=== PATIENT | male | born 1990 ===

== ENCOUNTER 2024-10-31 09:45 | Emergency (ER) | payer MEDICAID, SELFPAY ==
--- NOTE | ~2024-10-31 | XR_ITS ---
EXAMINATION: XR CHEST CLINICAL INFORMATION: Dizziness COMPARISON: None available. TECHNIQUE: Frontal view of the chest was obtained. FINDINGS: The cardiac, hilar, and mediastinal contours are normal. The lungs are clear bilaterally. No pneumothorax or effusion. No focal osseous or soft tissue abnormality. XR/XR chest 1V IMPRESSION: No active pulmonary disease. Electronically signed by: Neftaly Morin MD 10/31/2024 12:51 PM EDT
--- NOTE | ~2024-10-31 | CT_ITS ---
EXAMINATION: CT HEAD WITHOUT IV CONTRAST HISTORY: dizziness, viera. TECHNIQUE: Unenhanced helical CT of the head was performed per standard departmental protocol. Coronal and sagittal reformats of the head were also evaluated. One or more of the following techniques was used for dose reduction: Automated exposure control, adjustment of the mA and/or kV according to patient size, use of iterative reconstruction technique. DLP: 752 mGy-cm COMPARISON: There are no prior studies for comparison. FINDINGS: BRAIN: The brain parenchyma is unremarkable. There is normal toussaint/white differentiation. The ventricular system is normal in size and configuration. There is no mass effect or midline shift. No intra- or extra-axial fluid collections are identified. SINUSES: There is pansinus mucosal thickening. The mastoid air cells and middle ear cavities are well pneumatized. ORBITS: The visualized orbits are unremarkable. BONES/SOFT TISSUES: The extracranial soft tissues are unremarkable. The calvarium is intact. No suspicious lytic or sclerotic lesions. CT/CT head/brain wo IV con IMPRESSION: Unremarkable unenhanced head CT. Electronically signed by: Rafi Souza MD 10/31/2024 01:53 PM EDT
[2024-10-31 09:57] VITALS: BP 133/73; PULSE 79; RESP 18; TEMP 36.1; O2SAT 98; BMI 26.9
[2024-10-31 10:44] LABS: MANUAL DIFF FLAG NO
[2024-10-31 10:53] LABS: Basophils Percent Auto 0.4 % (0-2); Eosinophils Absolute Auto 0.1 X10*3/uL (0.0-0.4); Eosinophils Percent Auto 0.8 % (0-4); Hematocrit 50.2 % (42.0-52.0); Hemoglobin 16.8 g/dl (14.0-18.0); Imm Gran Abs Auto 0.04 X10*3/uL (0.00-0.03); Imm Gran Pct Auto 0.4 % (0.0-0.4); Lymphocytes Absolute Auto 2.6 X10*3/uL (1.2-4.9); Lymphocytes Percent Auto 25.7 % (20-40); Mean Corpuscular HGB Conc 33.5 g/dl (31.0-36.0); Mean Corpuscular Hemoglobin 28.4 pg (27.0-33.0); Mean Corpuscular Volume 84.9 fL (80.0-98.0); Mean Platelet Volume 9.9 fL (9.4-12.4); Monocytes Absolute Auto 0.6 X10*3/uL (0.1-1.2); Monocytes Percent Auto 6.1 % (2-11); Neutrophils Absolute Auto 6.7 x10*3/uL (2.0-8.3); Neutrophils Percent Auto 66.6 % (45-73); Platelet Count 284 X10*3/uL (160-400); Red Blood Count 5.91 X10*6/uL (4.60-5.80); Red Cell Distribution Width 12.2 % (11.0-16.0); White Blood Count 10.1 X10*3/uL (4.8-10.8)
[2024-10-31 10:55] LABS: Appearance Urine Clear; Color Urine Yellow; Glucose Urine UA Negative (Negative); Leukocyte Esterase Urine Negative (Negative); Nitrite Urine Negative (Negative); PH 7.5 (5.0-9.0); Specific Gravity - Urine 1.025 (1.005-1.025); UMIC TRIGGER UACC YES; Urine Blood Negative (Negative); Urine Ketones Trace mg/dL (Negative); Urine Protein 30 (1+) mg/dL (Neg-Trace)
[2024-10-31 11:00] LABS: Bacteria Urine None Seen (None Seen); Hyaline Casts Urine 0-2 /LPF (0-2); RBC Urine 0-2 /HPF (0-2); Squamous Epithelial Cell Urine 0-2 /HPF (0-2); WBC Urine 0-5 /HPF (0-5)
[2024-10-31 11:11] LABS: Alanine Aminotransferase 47 U/L (0-40); Albumin Level 4.2 g/dL (3.5-5.0); Alkaline Phosphatase 87 U/L (39-117); Anion Gap 14 (12-20); Aspartate Amino Transferase 28 U/L (5-37); Bilirubin Direct 0.2 mg/dL (0.0-0.5); Bilirubin Total 0.8 mg/dL (0.0-1.0); Blood Urea Nitrogen 12 mg/dL (9-16); Calcium 9.5 mg/dL (8.4-10.2); Carbon Dioxide 24 mmol/L (22-29); Chloride 107 mmol/L (96-108); Creatinine Clr Calc Pharmacy 127.3; Estimated Glomerular Filt Rate > 60; Glucose Random 122 mg/dL (60-115); Magnesium 1.8 mg/dL (1.6-2.6); Potassium 3.8 mmol/L (3.3-5.1); Sodium 141 mmol/L (135-145); Total Protein 7.4 g/dL (6.5-8.0)
[2024-10-31 12:08] VITALS: BP 137/90; PULSE 68; RESP 18; O2SAT 100
--- NOTE | 2024-10-31 12:19 | ED_ITS ---
HPI - General Adult General Chief complaint: Abdominal Pain Stated complaint: nausea weak fainted last night Time Seen by Provider: 10/31/24 11:53 Source: patient, RN notes reviewed and old records reviewed Mode of arrival: ambulatory History of Present Illness ED Provider: Di Sánchez PA-C HPI narrative: 34-year-old male with no significant past medical history presenting to the ED complaining of lightheadedness/dizziness described as feeling off balance - worse with position changes, resolves at rest, abdominal discomfort, nausea, diarrhea, mild headache x last night. Reports generalized fatigue/weakness. Reports fall last night around 03:00 secondary to feeling dizzy, denies head strike or LOC. Denies syncope. Denies anticoagulation use, vision change or loss, focal weakness, CP/SOB, vomiting, dysuria/hematuria. Related Data Previous Rx's ?Medication ?Instructions ?Recorded meclizine 25 mg tablet 25 mg PO TID PRN dizziness #14 tabs 10/31/24 Allergies Allergy/AdvReac Type Severity Reaction Status Date / Time No Known Allergies Allergy Verified 10/31/24 09:59 Review of Systems 2 Review of Systems: Yes all other systems are reviewed and are negative Constitutional: Constitutional: Reports as per HPI Neurologic: Denies Abnormal speech present [facility] Past Medical History Attestation statement: The following information was validated with the patient. Source: old records reviewed Social History Social History Advance Directives: No Advance Directives Information Provided: Yes Physical Exam ED Vital Signs: Vital Signs - 24 hr 10/31/24 09:57 10/31/24 12:08 10/31/24 13:45 Temperature 96.9 F Pulse Rate 79 68 70 Respiratory Rate 18 18 Blood Pressure 133/73 137/90 H 119/75 Pulse Oximetry 98 100 Oxygen Delivery Method Room Air Room Air 10/31/24 13:45 10/31/24 13:46 10/31/24 13:46 Temperature Pulse Rate 78 70 87 Respiratory Rate 16 Blood Pressure 137/85 119/75 124/91 H Pulse Oximetry 97 Oxygen Delivery Method Room Air BMI result Body Mass Index 26.9 Const General: cooperative, healthy appearing and no acute distress Orientation/consciousness: patient oriented x3 Limitations: no limitations HENMT Head: Yes normal to inspection and Yes atraumatic Ears: hearing grossly normal bilaterally General nose exam: Normal external nose present Face and sinus: Yes normal facial exam Mouth: Normal oral and palatal mucosa present Throat: Yes posterior oropharynx normal Eyes General: appearance normal, both eyes and all related structures Pupils: Equal, round and reactive pupils present EOM: EOMs intact bilaterally Neck Neck: Yes normal visual inspection and Yes no meningeal signs Resp Effort & Inspection: normal respiratory effort and no respiratory distress Auscultation: clear to auscultation bilaterally, no crackles, no rales, no rhonchi and no wheezes Cardio Rate: regular rate Heart sounds: S1 normal heart sound present and S2 normal heart sound present GI Inspection: Yes normal to inspection Palpation (GI): Soft to palpation, nontender, no guarding and not rigid General: Yes no CVA tenderness Back/Spine/Pelvis Back: no CVA tenderness Skin Rashes: no rashes Wounds: no wounds Neuro General: patient oriented x3, gait normal, tone normal, moves all extremities, no meningeal signs, no focal motor deficits and CN's II-XI intact bilaterally Cranial nerves: Yes CN's II-XII intact bilaterally, Yes Equal, round and reactive pupils present and Yes Bilaterally intact EOM present Cognition (Neuro): normal cognition Speech: No Abnormal speech present Gait exam (Neuro): Normal gait present (No ataxia) Motor exam (neuro): 5/5 motor strength present throughout Romberg Test: Negative Extrem General: Yes normal to inspection and Yes no pedal edema Course Course Course Narrative: -1422--labs reassuring including negative troponin -UA negative. Viral testing negative CT head/brain wo IV con IMPRESSION: Unremarkable unenhanced head CT. XR chest 1V IMPRESSION: No active pulmonary disease. -orthostatic vital signs negative > 1432 on re-evaluation patient reports symptomatic improvement. Feels comfortable for discharge home at this time. Results discussed with patient including worrisome signs and symptoms and strict return precautions, and when to return to the emergency department. They verbalized understanding and feel safe for discharge at this time. Medications Administered Discontinued Medications Generic Name Dose Route Start Last Admin Trade Name Freq PRN Reason Stop Dose Admin Acetaminophen 650 mg 10/31/24 12:14 10/31/24 12:28 Acetaminophen 325 Mg Tablet PO 10/31/24 12:15 650 mg ONCE ONE Administration Sodium Chloride 1,000 mls @ 999 mls/hr 10/31/24 12:15 10/31/24 13:58 Ns IV 10/31/24 13:15 Infused .Q1H1M LOI Infusion Meclizine HCl 25 mg 10/31/24 12:14 10/31/24 12:29 Meclizine Hcl 25 Mg Tablet PO 10/31/24 12:15 25 mg ONCE ONE Administration Medical Decision Making Medical Decision Making [facility] Narrative: 34-year-old male with no significant past medical history presenting to the ED complaining of lightheadedness/dizziness described as feeling off balance - worse with position changes, resolves at rest, abdominal discomfort, nausea, diarrhea, mild headache x last night. Reports generalized fatigue/weakness. On exam vital signs stable, NAD, nontoxic appearing, no focal neuro deficits, ambulating with steady gait, no ataxia, abdomen is soft and nontender. Concern for BPPV vs dehydration vs viral illness. Rule out metabolic abnormalities. Lower suspicion for acute CVA/TIA, meningitis/encephalitis, CVT, ACS, or intra- abdominal pathology including appendicitis/diverticulitis Plan: EKG, labs, UA, CXR, head CT, orthostatics, IVF, meclizine, re-evaluate Please refer to course for remaining clinical decision making, interpretation of labs/imaging results, and discussions with consultants and/or family members. Differential Diagnosis Differential Diagnoses: The differential diagnosis associated with the presentation includes As above Admission/Observation Consideration of admission/observation: Escalation of care including admission/observation considered Lab Data [facility] Lab Attestation statement: I reviewed the patient's lab results. 10/31/24 10:15 10/31/24 10:15 Labs: Lab Results 10/31/24 10/31/24 10/31/24 Range/Units 10:15 10:47 12:19 WBC 10.1 (4.8-10.8) X10*3/uL RBC 5.91 H (4.60-5.80) X10*6/uL Hgb 16.8 (14.0-18.0) g/dl Hct 50.2 (42.0-52.0) % MCV 84.9 (80.0-98.0) fL MCH 28.4 (27.0-33.0) pg MCHC 33.5 (31.0-36.0) g/dl RDW 12.2 (11.0-16.0) % Plt Count 284 (160-400) X10*3/uL MPV 9.9 (9.4-12.4) fL Immature Gran % (Auto) 0.4 (0.0-0.4) % Neut % (Auto) 66.6 (45-73) % Lymph % (Auto) 25.7 (20-40) % Hyde % (Auto) 6.1 (2-11) % Eos % (Auto) 0.8 (0-4) % Baso % (Auto) 0.4 (0-2) % Lymph # (Auto) 2.6 (1.2-4.9) X10*3/uL Hyde # (Auto) 0.6 (0.1-1.2) X10*3/uL Eos # (Auto) 0.1 (0.0-0.4) X10*3/uL Baso # (Auto) 0.0 (0.0-0.2) X10*3/uL Abs Immat Gran (auto) 0.04 H (0.00-0.03) X10*3/uL Absolute Neuts (auto) 6.7 (2.0-8.3) x10*3/uL Absolute Nucleated RBC 0.000 (0.0-0.012) X10*3/uL Nucleated RBC % (auto) 0.0 (0.0-0.2) /100WBC Sodium 141 (135-145) mmol/L Potassium 3.8 (3.3-5.1) mmol/L Chloride 107 (96-108) mmol/L Carbon Dioxide 24 (22-29) mmol/L Anion Gap 14 (12-20) BUN 12 (9-16) mg/dL Creatinine 0.86 (0.5-1.4) mg/dL Estim Creat Clear Calc 127.3 Estimated GFR > 60 Random Glucose 122 H (60-115) mg/dL Calcium 9.5 (8.4-10.2) mg/dL Magnesium 1.8 (1.6-2.6) mg/dL Total Bilirubin 0.8 (0.0-1.0) mg/dL Direct Bilirubin 0.2 (0.0-0.5) mg/dL AST 28 (5-37) U/L ALT 47 H (0-40) U/L Alkaline Phosphatase 87 (39-117) U/L Troponin I High Sens < 2.7 (<3.5-35.0) ng/L Total Protein 7.4 (6.5-8.0) g/dL Albumin 4.2 (3.5-5.0) g/dL Lipase 27 (8-78) U/L Urine Color Yellow Urine Appearance Clear Urine pH 7.5 (5.0-9.0) Ur Specific Al[place] 1.025 (1.005-1.025) Urine Protein 30 (1+) H (Neg-Trace) mg/dL Urine Glucose (UA) Negative (Negative) mg/dL Urine Ketones Trace (Negative) mg/dL Urine Blood Negative (Negative) Urine Nitrite Negative (Negative) Ur Leukocyte Esterase Negative (Negative) Urine RBC 0-2 (0-2) /HPF Urine WBC 0-5 (0-5) /HPF Ur Squamous Epith Cells 0-2 (0-2) /HPF Urine Bacteria None Seen (None Seen) Hyaline Casts 0-2 (0-2) /LPF Influenza Type A (PCR) NEGATIVE (Negative) Influenza Type B (PCR) NEGATIVE (Negative) RSV RNA Qual (PCR) NEGATIVE (Negative) SARS-CoV-2 RNA (RT-PCR) NEGATIVE (Negative) Independent Interpretation I performed an independent interpretation of an: EKG, Plain X-Ray and CT Scan Radiology Impression Discussion of test interpretation with radiology: I have reviewed the radiologist's reading. Independent Historian Clinical information obtained from an independent historian. History obtained from or confirmed by: Other External Record Review External record reviewed: Inpatient record, Office record, Outpatient record, Prior outpatient labs, Prior outpatient radiology, Primary care record and Outside ED record Tests considered The following testing was considered but not selected: As above Prescription Management I considered prescription management with: Pain Medication and Other Chronic Conditions Patient?s care impacted by: Other Social Determinants Patient?s care significantly limited by Social Determinants of Health including: Other Social Determinant of Health Discharge Plan Discharge Clinical Impression: Dizziness, Abdominal pain Patient Disposition: Home, Self-Care Instructions: Abdominal Pain (ED), Dizziness (ED) Additional Instructions: Your blood work and imaging studies are reassuring Meclizine is for dizziness, take as needed If her symptoms persist or worsen, become more constant, dizziness is at rest, you have constant or worsening headache, abdominal pain, nausea/vomiting return to the ED Prescriptions: New meclizine 25 mg tablet 25 mg PO TID PRN (Reason: dizziness) Qty: 14 0RF Referrals: [facility] [Primary Care Provider] - 5 days Print Language: Vietnamese
[2024-10-31] MEDS: Acetaminophen 325 MG TABLET 650 MG PO (12:28)
[2024-10-31] MEDS: Meclizine HCl 25 MG TABLET PO (12:29)
[2024-10-31] MEDS: 0.9 % Sodium Chloride 1,000 ML 999 ML IV (12:29)
[2024-10-31 12:46] LABS: Lipase 27 U/L (8-78)
[2024-10-31 12:55] LABS: Troponin-I High Sensitivity < 2.7 ng/L (<3.5-35.0)
--- OUTSIDE RECORDS SUMMARY | 2024-10-31 12:59 | XMS_ITS | Encounter Summary ---
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 Name Role Phone Unavailable Primary Care Provider Unavailabl e Encounter Details Date Type Department Care Team (Late st Contact Info) Description 10/31/2024 Orders Only GENERIC EXTERNAL DATA DEPARTMENT Provider, Generic External Data Social History Tobacco Use Types Packs/Day Years Used Date Smoking Tobacco: Never Passive Smoke Exposure: Never Smokeless Tobacco: Never Sex and Gender Information Value Date Recorded Sex Assigned at Male 08/15/2024 1:34 PM EST Legal Sex Male 1:31 PM EST Gender Identity Male 08/15/2024 1:34 PM EST Sexual Orientation Straight 08/15/2024 1: 34 PM EST documented as of this encounter Plan of Treatment Upcoming Encounters Date Type Department Care Team (Late st Contact Info) Description 11/15/2024 10:00 AM EDT Office Visit [facility] [address] [place] [address] Leanne Starr MD [address] [place] [address] documented as of this encounter Procedures Procedure Name Priority Date/Time Associated Diagnosis Comments URINALYSIS, COMPLETE, WITH REFLEX TO CULTURE Routine 10/31/2024 10:47 AM EDT CBC WITH AUTO DIFFERENTIAL Routine 10/31/2024 10:15 AM EDT MAGNESIUM Routine 10/31/2024 10:15 AM EDT HEPATIC FUNCTION PANEL Routine 10:15 AM EDT COMPREHENSIVE METABOLIC PANEL Routine 10/31/2024 10:15 AM EDT documented in this encounter Results * (ABNORMAL) Urinalysis, Complete, with Reflex to Culture (10/31/2024 10:47 AM EDT) Color Urine Yellow [facility] Appearance Urine Clear [facility] PH 7.5 5.0 - 9.0 [facility] Glucose Urine UA Negative Negative mg/dL [facility] Urine Blood Negative Negative [facility] Specific [place] - Urine 1.025 1.005 - 1.025 [facility] Urine Protein 30 (1+)(A) Neg-Trace mg/dL [facility] Urine Ketones Trace Negative mg/dL [facility] Nitrite Urine Negative Negative [facility] Leukocyte Esterase Urine Negative Negative [facility] RBC Urine 0-2 0 - 2 /HPF [facility] Urine WBC 0-5 0 - 5 /HPF [facility] Urine Squamous Epithelial Cell 0-2 0 - 2 /HPF [facility] Urine Bacteria None Seen None Seen [facility] Hyaline Casts, Urine 0-2 0 - 2 /LPF [facility] 10/31/2024 10:4 7 AM EDT 10/31/2024 10:50 AM EDT Narrative [facility] - 10/31/2024 11:02 AM EDT [id number], Clean Catch us Generic External Data Provider LAB URINE ORDERAB LES Final Result [facility] [address] [place] [phone] * Magnesium (10/31/2024 10:15 AM EDT) Magnesium 1.8 1.6 - 2.6 mg/dL [facility] 10/31/2024 10:1 5 AM EDT 10/31/2024 10:41 AM EDT Generic External Data Provider LAB BLOOD ORDERAB LES Final Result Performing Organization Address City/[facility]/ZIP Co de Phone Number [facility] [address] [place] [address] [phone] * Hepatic Function Panel (10/31/2024 10:15 AM EDT) Pathologist [facility] Bilirubin, Direct 0.2 0.0 - 0.5 mg/dL [facility] 10/31/2024 10:1 5 AM EDT 10/31/2024 10:41 AM EDT Generic External Data Provider LAB BLOOD ORDERAB LES Final Result Performing Organization Address [facility] Co de Phone Number [facility] [address] [place] [address] [phone] * (ABNORMAL) Comprehensive Metabolic Panel (10/31/2024 10:15 AM EDT) [facility] Sodium 141 135 - 145 mmol/L [facility] Potassium 3.8 3.3 - 5.1 mmol/L [facility] Chloride 107 96 - 108 mmol/L [facility] Carbon Dioxide 24 22 - 29 mmol/L [facility] Anion Gap 14 12 - 20 [facility] Urea Nitrogen (BUN) 12 9 - 16 mg/dL [facility] Creatinine, Serum 0.86 0.5 - 1.4 mg/dL [facility] Creatinine Clr Calc Pharmacy 127.3 [facility] Comment:eGFR (calculated fro m the MDRD study equation) and eCrCl(calculated from the Cockcroft-Gault equation) are based ondifferent parameters and may not yield comparable results.If eCrCl result is absurd, please check patient'sheight/weight. Estimated Glomerular Filt Rate >60 [facility] Comment:Chronic Kidney Disea se: Estimated GFR < 60 mL/min/[id number] Kidney Disease: Estimated GFR < 15 mL/min/1.73m2 Glucose 122(H) 60 - 115 mg/dL [facility] Calcium 9.5 8.4 - 10.2 mg/dL [facility] Bilirubin, Total 0.8 0.0 - 1.0 mg/dL [facility] Aspartate Amino Transferase 28 5 - 37 U/L [facility] Alanine Aminotransferase 47(H) 0 - 40 U/L [facility] Total Protein 7.4 6.5 - 8.0 g/dL [facility] Albumin Level 4.2 3.5 - 5.0 g/dL [facility] Alkaline Phosphatase 87 39 - 117 U/L [facility] 10/31/2024 10:1 5 AM EDT 10/31/2024 10:41 AM EDT us Generic External Data Provider LAB BLOOD ORDERAB LES Final Result [facility] [address] [place] [phone] * (ABNORMAL) CBC auto differential (10/31/2024 10:15 AM EDT) White Blood Count 10.1 4.8 - 10.8 X10*3/uL [facility] Red Blood Count 5.91(H) 4.60 - 5.80 X10*6/uL [facility] Hemoglobin 16.8 14.0 - 18.0 g/dl [facility] Hematocrit 50.2 42.0 - 52.0 % [facility] Mean Corpuscular Volume 84.9 80.0 - 98.0 fL [facility] Mean Corpuscular Hemoglobin 28.4 27.0 - 33.0 pg [facility] Mean Corpuscular HGB Conc 33.5 31.0 - 36.0 g/dl [facility] Red Cell Distribution Width 12.2 11.0 - 16.0 % [facility] Platelet Count 284 160 - 400 X10*3/uL [facility] Mean Platelet Volume 9.9 9.4 - 12.4 fL [facility] Neutrophils Percent Auto 66.6 45 - 73 % [facility] Imm Gran Pct Auto 0.4 0.0 - 0.4 % [facility] Lymphocytes Percent Auto 25.7 20 - 40 % [facility] Monocytes Percent Auto 6.1 2 - 11 % [facility] Eosinophils Percent Auto 0.8 0 - 4 % [facility] Basophils Percent Auto 0.4 0 - 2 % [facility] NRBC Pct Auto 0.0 0.0 - 0.2 /100WBC [facility] Neutrophils Absolute Auto 6.7 2.0 - 8.3 x10*3/uL [facility] Imm Gran Abs Auto 0.04(H) 0.00 - 0.03 X10*3/uL [facility] Lymphocytes Absolute Auto 2.6 1.2 - 4.9 X10*3/uL [facility] Monocytes Absolute Auto 0.6 0.1 - 1.2 X10*3/uL [facility] Eosinophils Absolute Auto 0.1 0.0 - 0.4 X10*3/uL [facility] Basophils Absolute Auto 0.0 0.0 - 0.2 X10*3/uL [facility] NRBC Abs Auto 0.000 0.0 - 0.012 X10*3/uL [facility] 10/31/2024 10:1 5 AM EDT 10/31/2024 10:41 AM EDT us Generic External Data Provider LAB BLOOD ORDERAB LES Final Result [facility] [address] [place] [phone] documented in this encounter Visit Diagnoses Not on filedocumented in this encounter
--- OUTSIDE RECORDS SUMMARY | 2024-10-31 12:59 | XMS_ITS | Clinical Summary ---
Author Organization [facility] Address [address] [place] [id number] Care Team Providers Care Rotational Moulding Operator Name Role Phone Pcp, No Primary Care Provider Unavailabl e Allergies No known active allergies Medications ProAir HFA 108 (90 Base) MCG/ACT inhaler INHALE 2 PUFFS BY MOUTH EVERY 6 HOURS NEEDED FOR DIFFICULTY BREATHING 1 Active fluticasone-salmet ines (ADVAIR HFA) 230-21 MCG/ACT inhalerIndications :Moderate persistent asthma, unspecified whether complicated Inhale 2 puffs 2 (two) times a day. 1 each 5 2 Active albuterol (PROVENTIL HFA; VENTOLIN HFA) 108 (90 Base) MCG/ACT inhalerIndications :Moderate persistent asthma, unspecified whether complicated Inhale 2 puffs 4 times daily (every 6 hours) as needed for wheezing. 1 each 11 2 Active montelukast (SINGULAIR) 10 MG tabletIndications: Moderate persistent asthma, unspecified whether complicated Take 1 tablet (10 mg total) by mouth nightly. 90 tablet 1 2 Active predniSONE (DELTASONE) 10 MG tabletIndications: Moderate persistent asthma with exacerbation Take 4 tablets daily x 3 days, followed by 3 tablets daily x 2 days, followed by 2 tablets daily x 2 days, followed by 1 tablet daily x 2 days 24 tablet 2 Active ibuprofen (MOTRIN) 800 mg tablet Take 1 tablet (800 mg total) by mouth 3 (three) times a day as needed for mild pain (pain). 20 tablet 2 Active ondansetron (ZOFRAN-ODT) 4 MG disintegrating tablet Take 1 tablet (4 mg total) by mouth 3 times daily (every 8 hours) as needed for nausea or vomiting. Place tablet on tongue to dissolve. 20 tablet Active Immunizations Immunization Administration Dates Next Due Influenza, Unspecified 07/09/2015 Social History Tobacco Use Types Packs/Day Years Used Date Smoking Tobacco: Never Smokeless Tobacco: Never Tobacco Cessation:Counseling Given: Not Answered Alcohol Use Standard Drinks/Week Comments Yes 1 (1 standard drink = 0.6 oz pur e alcohol) social Sex and Gender Information Value Date Recorded Sex Assigned at Male 11/25/2023 2:46 AM EDT Legal Sex Male 4:57 PM EDT Gender Identity Male 11/25/2023 2:46 AM EDT Sexual Orientation Heterosexual (straight) 11/24 2:46 AM EDT Last Filed Vital Signs Vital Sign Reading Time Taken Comments Blood Pressure 106/58 11/25/2023 4:26 AM EDT Pulse 104 11/25/2023 4:26 AM EDT Temperature 37.2 ??C (98.9 ??F) 11/25/2023 2:49 AM ED T Respiratory Rate 16 11/25/2023 4:26 AM EDT Oxygen Saturation 97% 11/25/2023 4:26 AM EDT Inhaled Oxygen Concentration - - Weight 85.3 kg (188 lb) 11/24/2023 11:28 PM EDT Height 177.8 cm (5' 10 ) 11/24/2023 11:28 PM EDT Body Mass Index 26.98 11/24/2023 11:28 PM EDT Plan of Treatment Health Maintenance Due Date Last Done Comments Hepatitis C Virus Screening 1992 DTaP/Tdap/Td Vaccines (1 - Tdap) 10/31/2011 Hepatitis B Vaccines (1 of 3 - 19+ 3-dose series) 10/31/2011 COVID-19 Vaccine (2023-2 5 season) 2024 Influenza Vaccine 01/17/2025 07/09/2015 HIV Screening Completed 07/09/2015 HPV Vaccines Aged Out No longer eligi ble based on patient's age to complete this topic Pneumococcal Vaccine: Pediat kirstin (0-5 Years) and At-Risk Patients (6 to 49 Years) Aged Out No longer eligible b ased on patient's age to complete this topic Procedures Procedure Name Priority Date/Time Associated Diagnosis Comments HXHOCC HIV1/2 AG/AB CMIA W/REFLEX Routine 07/09/2015 3:51 PM EST from Last 3 Months or Most Recently Relevant to Health Maintenance Results * HIV1/2 Ag/Ab CMIA w/Reflex (07/09/2015 3:51 PM EST) HIV 1/2 Ag/Ab CMIA Negative Negative [facility] CONVERSION Comment: Result Comment: Results show no evidence of infection by HIV 1/2. If clinically indicated, repeat CMIA or test by nucleic acid amplification.Test Performed at: [facility], [facility], [place], [address]; CLIA# ?? [id number] 07/09/2015 3:51 PM EST us Rogelio Will MD HX LAB Final Re sult [facility] CONVERSION from Last 3 Months or Most Recently Relevant to Health Maintenance Insurance [facility] Care Teams Rotational Moulding Operator Relationship Specialty Start Date End Date Pcp, No PCP - General General Medicine 05/20/22
--- OUTSIDE RECORDS SUMMARY | 2024-10-31 12:59 | XMS_ITS | Clinical Summary ---
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 Rinse mouth with water after use to reduce aftertaste and incidence of candidiasis. Do not swallow. 1 each 11 5 08/15/19 26 Active albuterol 108 (90 Base) MCG/ACT inhalerIndication s:Moderate persistent asthma without complication Inhale 2 puffs every 4 (four) hours if needed for wheezing. 18 g 5 Active Active Problems Problem Noted Date Diagnosed Date Influenza A 08/15/2024 Assessment & Plan (08/15/2024 2:24 PM EST): COVID, ans Strep negative. Influenza A positive. No evidence of respiratory distress. Symptoms mild. No evidence of dehydration. Not in window for Tamiflu treatment. -Supportive care advised. -Isolation recommendations discussed. -Refilled inhalers. Moderate persistent asthma without complication 08/15/2024 Assessment & Plan (08/15/2024 2:25 PM EST): Moved from [place]. Refilled inhaler prescriptions and will get follow-up with ne PCP here. Encounters Date Type Department Care Team Description 10/31/2024 Orders Only GENERIC EXTERNAL DATA DEPARTMENT Provider, Generic External Data 09/18/2024 Population Health Risk Score [facility] Care [facility] ([facility]) Department [address] [facility] [address] [place] [address] Provider, Population Health Generic 08/15/2024 2:00 PM EST Office Visit [facility] [address] [place] [address] Arielle Beatty MD Influenza A (Primary Dx); Moderate persistent asthma without complication from Last 3 Months Family History Medical History Relation Name Comments Hypertension Brother Cancer Mother Heart disease Mother Relation Name Status Comments Brother Mother Social History Tobacco Use Types Packs/Day Years Used Date Smoking Tobacco: Never Passive Smoke Exposure: Never Smokeless Tobacco: Never Tobacco Cessation:Counseling Given: Not Answered Sex and Gender Information Value Date Recorded Sex Assigned at Male 08/15/2024 1:34 PM EST Legal Sex Male 1:31 PM EST Gender Identity Male 08/15/2024 1:34 PM EST Sexual Orientation Straight 08/15/2024 1: 34 PM EST Last Filed Vital Signs Vital Sign Reading Time Taken Comments Blood Pressure 140/83 08/15/2024 1:51 PM EST Pulse 78 08/15/2024 1:51 PM EST Temperature 36.8 ??C (98.2 ??F) 08/15/2024 1:51 PM ES T Respiratory Rate 18 08/15/2024 1:51 PM EST Oxygen Saturation 96% 08/15/2024 1:51 PM EST Inhaled Oxygen Concentration - - Weight 83.6 kg (184 lb 6.4 oz) 08/15/2024 1:51 P M EST Height 177.8 cm (5' 10 ) 08/15/2024 1:51 PM EST Body Mass Index 26.46 08/15/2024 1:51 PM EST Plan of Treatment Upcoming Encounters Date Type Department Care Team (Late st Contact Info) Description 11/15/2024 10:00 AM EDT Office Visit [facility] [address] [place] [phone] Leanne Starr MD [address] [place] [address] Health Maintenance Due Date Last Done Comments Depression Screening 1992 HIV Screening 1992 SDOH Screening 1992 Alcohol/Substance Use Screening 2004 Family Planning (PISQ) 10/31/2007 Hepatitis C Screening 2010 DTaP/Tdap/Td Vaccines (1 - Tdap) 10/31/2011 Hepatitis B Vaccines (1 of 3 - 19+ 3-dose series) 10/31/2011 Pneumococcal Vaccine: Pediat rics (0 to 5 Years) and At-Risk Patients (6 to 49) Years) (1 of 2 - PCV) 10/31/2011 COVID-19 Vaccine (1 - 2023-2 5 season) 2024 Influenza Vaccine (#1) 2024 07/09/2015 Tobacco Screening 08/15/2025 08/15/2024 Zoster Vaccines (1 of 2) 2042 RSV Patients and Pa tients Aged 60 years or older (1 - 1-dose 75+ series) 10/31/2067 HIB Vaccines Aged Out No longer eligi ble based on patient's age to complete this topic HPV Vaccines Aged Out No longer eligi ble based on patient's age to complete this topic Hepatitis A Vaccines Aged Out No long er eligible based on patient's age to complete this topic IPV Vaccines Aged Out No longer eligi ble based on patient's age to complete this topic Meningococcal B Vaccine Aged Out No l onger eligible based on patient's age to complete this topic Meningococcal Vaccine Aged Out No raffi luis eligible based on patient's age to complete this topic RSV under 20 months Aged Out No longe r eligible based on patient's age to complete this topic Rotavirus Vaccines Aged Out No longer eligible based on patient's age to complete this topic Procedures Procedure Name Priority Date/Time Associated Diagnosis Comments URINALYSIS, COMPLETE, WITH REFLEX TO CULTURE Routine 10/31/2024 10:47 AM EDT MAGNESIUM Routine 10/31/2024 10:15 AM EDT HEPATIC FUNCTION PANEL Routine 10/31/2024 10:15 AM EDT COMPREHENSIVE METABOLIC PANEL Routine 10/31/2024 10:15 AM EDT CBC WITH AUTO DIFFERENTIAL Routine 10/31/2024 10:15 AM EDT POCT COVID-19 AG [place] ID NOW Routine 08/15/2024 2:01 PM EST Moderate persistent asthma without complication POCT INFLUENZA A (ID NOW RAPID MOLECULAR) Routine 08/15/2024 2:01 PM EST Moderate persistent asthma without complication POCT INFLUENZA B (ID NOW RAPID MOLECULAR) Routine 08/15/2024 2:01 PM EST Moderate persistent asthma without complication from Last 3 Months Results * (ABNORMAL) Urinalysis, Complete, with Reflex to Culture (10/31/2024 10:47 AM EDT) Color Urine Yellow [facility] Appearance Urine Clear [facility] PH 7.5 5.0 - 9.0 [facility] Glucose Urine UA Negative Negative mg/dL [facility] Urine Blood Negative Negative [facility] Specific [place] - Urine 1.025 1.005 - 1.025 [facility] Urine Protein 30 (1+)(A) Neg-Trace mg/dL [facility] Urine Ketones Trace Negative mg/dL [facility] Nitrite Urine Negative Negative [facility] Leukocyte Esterase Urine Negative Negative [facility] RBC Urine 0-2 0 - 2 /HPF [facility] Urine WBC 0-5 0 - 5 /HPF [facility] Urine Squamous Epithelial Cell 0-2 0 - 2 /HPF [facility] Urine Bacteria None Seen None Seen [facility] Hyaline Casts, Urine 0-2 0 - 2 /LPF [facility] 10/31/2024 10:4 7 AM EDT 10/31/2024 10:50 AM EDT Narrative [facility] - 10/31/2024 11:02 AM EDT [id number], Clean Catch us Generic External Data Provider LAB URINE ORDERAB LES Final Result [facility] [address] [place] [phone] * (ABNORMAL) CBC auto differential (10/31/2024 10:15 AM EDT) White Blood Count 10.1 4.8 - 10.8 X10*3/uL [facility] Red Blood Count 5.91(H) 4.60 - 5.80 X10*6/uL [facility] Hemoglobin 16.8 14.0 - 18.0 g/dl [facility] Hematocrit 50.2 42.0 - 52.0 % [facility] Mean Corpuscular Volume 84.9 80.0 - 98.0 fL [facility] Mean Corpuscular Hemoglobin 28.4 27.0 - 33.0 pg [facility] Mean Corpuscular HGB Conc 33.5 31.0 - 36.0 g/dl [facility] Red Cell Distribution Width 12.2 11.0 - 16.0 % [facility] Platelet Count 284 160 - 400 X10*3/uL [facility] Mean Platelet Volume 9.9 9.4 - 12.4 [facility] Neutrophils Percent Auto 66.6 45 - 73 % [facility] Imm Gran Pct Auto 0.4 0.0 - 0.4 % [facility] Lymphocytes Percent Auto 25.7 20 - 40 % [facility] Monocytes Percent Auto 6.1 2 - 11 % [facility] Eosinophils Percent Auto 0.8 0 - 4 % [facility] Basophils Percent Auto 0.4 0 - 2 % [facility] NRBC Pct Auto 0.0 0.0 - 0.2 /100WBC [facility] Neutrophils Absolute Auto 6.7 2.0 - 8.3 x10*3/uL [facility] Imm Gran Abs Auto 0.04(H) 0.00 - 0.03 X10*3/uL [facility] Lymphocytes Absolute Auto 2.6 1.2 - 4.9 X10*3/uL [facility] Monocytes Absolute Auto 0.6 0.1 - 1.2 X10*3/uL [facility] Eosinophils Absolute Auto 0.1 0.0 - 0.4 X10*3/uL [facility] Basophils Absolute Auto 0.0 0.0 - 0.2 X10*3/uL [facility] NRBC Abs Auto 0.000 0.0 - 0.012 X10*3/uL [facility] 10/31/2024 10:1 5 AM EDT 10/31/2024 10:41 AM EDT Generic External Data Provider LAB BLOOD ORDERAB LES Final Result Performing Organization Address City/[facility] Co de Phone Number [facility] [address] [place] [phone] * Magnesium (10/31/2024 10:15 AM EDT) Magnesium 1.8 1.6 - 2.6 mg/dL [facility] 10/31/2024 10:1 5 AM EDT 10/31/2024 10:41 AM EDT Generic External Data Provider LAB BLOOD ORDERAB LES Final Result Performing Organization Address [facility] Phone Number [facility] [address] [place] [phone] * Hepatic Function Panel (10/31/2024 10:15 AM EDT) Bilirubin, Direct 0.2 0.0 - 0.5 mg/dL [facility] 10/31/2024 10:1 5 AM EDT 10/31/2024 10:41 AM EDT Generic External Data Provider LAB BLOOD ORDERAB LES Final Result Performing Organization Address [facility] de Phone Number [facility] [address] [place] [phone] * (ABNORMAL) Comprehensive Metabolic Panel (10/31/2024 10:15 AM EDT) Sodium 141 135 - 145 mmol/L [facility] Potassium 3.8 3.3 - 5.1 mmol/L [facility] Chloride 107 96 - 108 mmol/L [facility] Carbon Dioxide 24 22 - 29 mmol/L [facility] Anion Gap 14 12 - 20 [facility] Urea Nitrogen (BUN) 12 9 - 16 mg/dL [facility] Creatinine, Serum 0.86 0.5 - 1.4 mg/dL [facility] Creatinine Clr Calc Pharmacy 127.3 [facility] Comment:eGFR (calculated fro m the MDRD study equation) and eCrCl(calculated from the Cockcroft-Gault equation) are based ondifferent parameters and may not yield comparable results.If eCrCl result is absurd, please check patient'sheight/weight. Estimated Glomerular Filt Rate >60 [facility] Comment:Chronic Kidney Disea se: Estimated GFR < 60 mL/min/1.35w0Nnbzly Kidney Disease: Estimated GFR < 15 mL/min/1.73m2 Glucose 122(H) 60 - 115 mg/dL [facility] Calcium 9.5 8.4 - 10.2 mg/dL [facility] Bilirubin, Total 0.8 0.0 - 1.0 mg/dL [facility] Aspartate Amino Transferase 28 5 - 37 U/L [facility] Alanine Aminotransferase 47(H) 0 - 40 U/L [facility] Total Protein 7.4 6.5 - 8.0 g/dL [facility] Albumin Level 4.2 3.5 - 5.0 g/dL [facility] Alkaline Phosphatase 87 39 - 117 U/L [facility] 10/31/2024 10:1 5 AM EDT 10/31/2024 10:41 AM EDT us Generic External Data Provider LAB BLOOD ORDERAB LES Final Result [facility] [address] [place] [phone] * Influenza B (ID NOW Rapid Molecular) (08/15/2024 2:01 PM EST) Influenza B Negative Negative, Indeterminate [facility] Swab 08/15/2024 2:01 PM EST Arielle Beatty MD POINT OF CARE TEST ENTER/E DIT ORDERABLES Final Result Performing Organization Address [facility] Co de Phone Number [facility] [address] [place] [phone] * (ABNORMAL) Influenza A (ID NOW Rapid Molecular) (08/15/2024 2:01 PM EST) Pathologist [facility] Influenza A Positive( A) Negative, Indeterminate [facility] Swab 08/15/2024 2:01 PM EST Arielle Beatty MD POINT OF CARE TEST ENTER/E DIT ORDERABLES Final Result Performing Organization Address [facility] Co de Phone Number [facility] [address] [place] [phone] * POCT COVID-19 Ag [place] ID NOW (08/15/2024 2:01 PM EST) Pathologist [facility] Coronavirus Antigen PCR Negative Negative, Indeterminate, None Detected, Invalid, Specimen unsatisfactory for evaluation, Weakly Positive Swab 08/15/2024 2:01 PM EST Result [facility] Arielle Beatty MD POINT OF CARE TEST ENTER/E DIT ORDERABLES Final Result from Last 3 Months Insurance [facility] STANDARD
--- OUTSIDE RECORDS SUMMARY | 2024-10-31 12:59 | XMS_ITS ---
Author Name [facility] Organization Unknown Results Test Name/Text Value Interpretation Date Range Source Magnesium SerPl-mCnc 1.3mg/dL Below low normal [id number] 1.6 - 2.7 [facility] Lipase SerPl-cCnc 23U/L Normal [id number] 13 - 60 [facility] ALT SerPl-cCnc 28U/L Normal [id number] 10 - 55 [facility] Albumin SerPl-mCnc 4.3g/dL Normal [id number] 3.5 - 5 [facility] Potassium SerPl-sCnc 3.6mmol/L Normal [id number] 3.4 - 5.3 [facility] Chloride SerPl-sCnc 97mmol/L Below low normal [id number] 98 - 107 [facility] BUN SerPl-mCnc 14mg/dL Normal [id number] 8 - 21 [facility] Globulin Ser Calc-mCnc 3.4g/dL Normal [id number] 1.5 - 3.9 [facility] Bilirub SerPl-mCnc 1.1mg/dL Above high normal [id number] 0.2 - 1 [facility] BUN/Creat SerPl 14Ratio Normal [id number] 10 - 25 [facility] Calcium SerPl-mCnc 9.2mg/dL Normal [id number] 8.7 - 10 .5 [facility] CO2 SerPl-sCnc 22mmol/L Normal [id number] 22 - 33 [facility] CCT Prot SerPl-mCnc 7.7g/dL Normal [id number] 6.3 - 8.3 [facility] AST SerPl-cCnc 16U/L Normal [id number] 10 - 55 [facility] ALP SerPl-cCnc 87U/L Normal [id number] 45 - 128 [facility] Albumin/Glob SerPl 1.3Ratio Normal [id number] 1 - 3 [facility] GFR/BSA.pred SerPlBld HNQ-TJO-TuYCxp 90 Normal [id number] 59 - [facility] Anion Gap Bld-sCnc 15 Normal [id number] 7 - 17 [facility] Sodium SerPl-sCnc 134mmol/L Below low normal [id number] 13 6 - 145 [facility] Creat SerPl-mCnc 1mg/dL Normal [id number] 0.5 - 1.3 [facility] Glucose SerPl-mCnc 174mg/dL Above high normal [id number] 65 - 99 [facility] Lymphocytes/leuk NFr Bld Auto 2.9% Normal [id number] [facility] Hct VFr Bld Auto 48.6% Normal [id number] 39 - 54 [facility] Imm Granulocytes num Bld Auto 0.05Thou/uL Normal [id number] 0 - 0.1 [facility] Neutrophils/leuk NFr Bld Auto 90.7% Normal [id number] [facility] Platelet num Bld Auto 265Thou/uL Normal [id number] 150 - 450 [facility] MCHC RBC Auto-mCnc 34.8g/dL Normal [id number] 30 - 36 [facility] WBC num Bld Auto 13.8Thou/uL Above high normal [id number] 4 - 11 [facility] Basophils num Bld Auto 0.02Thou/uL Normal [id number] 0 - 0.2 [facility] Basophils/leuk NFr Bld Auto 0.1% Normal [id number] [facility] Monocytes/leuk NFr Bld Auto 5.9% Normal [id number] [facility] MCH RBC Qn Auto 29.2pg Normal [id number] 26 - 34 [facility] RDW RBC Auto-Rto 12.1% Normal [id number] 11.5 - 14. 5 [facility] Hgb Bld-mCnc 16.9g/dL Normal [id number] 13 - 17.7 [facility] T Eosinophil/leuk NFr Bld Auto 0% Normal [id number] [facility] MCV RBC Auto 84fL Normal [id number] 80 - 100 [facility] T RBC num Bld Auto 5.79Mil/uL Normal [id number] 4.5 - 6.2 [facility] Eosinophil num Bld Auto 0Thou/uL Normal [id number] 0 - 0.7 [facility] Imm Granulocytes/leuk NFr Bld Auto 0.4% Normal [id number] [facility] Neutrophils num Bld Auto 12.53Thou/uL Above high normal [id number] 2 - 7.5 [facility] PMV Bld Auto 9.9fL Normal [id number] 7.5 - 12.[address] Lymphocytes num Bld Auto 0.4Thou/uL Below low normal [id number] 1.5 - 4.5 [facility] Monocytes num Bld Auto 0.81Thou/uL Normal [id number] 0. 2 - 1.5 [facility] History of Medication Use Medication Directions Dispensed Refills Start Date End Date Stat predniSONE (DELTASONE) 10 MG tablet Take 4 tablets daily x 3 days, followed by 3 tablets daily x 2 days, followed by 2 tablets daily x 2 days, followed by 1 tablet daily x 2 days 04/07/2022 05/05/2022 active albuterol (PROVENTIL HFA; VENTOLIN HFA) 108 (90 Base) MCG/ACT inhaler Inhale 2 puffs 4 times daily (every 6 hours) as needed for wheezing. 04/07/2022 active montelukast (SINGULAIR) 10 MG tablet Take 1 tablet (10 mg total) by mouth nightly. 04/07/2022 active ProAir HFA 108 (90 Base) MCG/ACT inhaler INHALE 2 PUFFS BY MOUTH EVERY 6 HOURS NEEDED FOR DIFFICULTY BREATHING 02/11/2021 active ibuprofen (MOTRIN) 600 MG tablet Take 1 tablet (600 mg total) by mouth 4 times daily (every 6 hours) as needed for mild pain. 07/22/2019 active Problems Problem Status Onset Date Problem Type Date of Resoluti on Source Pain, joint, knee, right active EncounterDiagnosisAct [facility] Immunizations Vaccine Date Source Lot Number Status Influenza, Unspecified 07/09/2015 [facility] co mpleted Encounters Encounter Type Encounter Reason Primary Diagnosis Location Date Emergency Unspecified abdominal pain Unspecified abdominal pain [facility] 11/25/2023 Emergency Viral infection, unspecified [facility] 05/20/2022 Ambulatory Eosinophilia, unspecified [facility] 05/05/2022 Ambulatory Moderate persist ent asthma, uncomplicated [facility] 04/07/2022 Ambulatory Unspecified asth ma, uncomplicated [facility] 03/17/2022 Care Team Organization Name Specialty Phone Email Start Date End Da te [facility] BAINSYURY DEBBIE Primary Care 06/21/2024 [facility] [place] Primary [facility] 05/04/2024 [facility] [place], Primary Care 01/15/2024 [facility]/17[facility]23 07/23/2024 [facility] [place], Primary Care 10/13/2023 [facility] 04/20/2023 024 [facility] 03/10/2023 024 [facility] 12/29/2022 07/20/2024 [facility] [place] Primary Care 07/11/2022 [facility] PCP,No Primary Care 05/20/2022 09/04/2024 [facility] NO PCP Primary Care 05/05/2022 05/05/2022
[2024-10-31 13:45] VITALS: BP 119/75; BP 137/85; PULSE 70; PULSE 78
[2024-10-31 13:45] LABS: Influenza A PCR NEGATIVE (Negative); Influenza B PCR NEGATIVE (Negative); Resp Syncy Virus RNA Qual PCR NEGATIVE (Negative); SARS COV2 PCR INHOUSE NEGATIVE (Negative)
[2024-10-31 13:46] VITALS: BP 119/75; BP 124/91; PULSE 70; PULSE 87; RESP 16; O2SAT 97
== END 2024-10-31 14:50 | disposition home or self-care (01) ==
PROVIDERS: Physician Assistant; Emergency Provider Emergency Medicine
DX: R42 Dizziness and giddiness (principal); R10.9 Unspecified abdominal pain; R51.9 Headache, unspecified; Z03.818 Encounter for observation for suspected exposure to other biological agents ruled out
CPT/HCPCS: 0241U; 36415; 70450; 71045; 80053; 81001; 82248; 83690; 83735; 84484; 85025; 96360; 99284

== ENCOUNTER → 2024-10-31 12:27 | Outpatient (BNV) | payer MEDICAID, SELFPAY | PROVIDERS: Emergency Provider Emergency Medicine; Visit Provider Radiology Diagnostic Radiology | DX: R51.9 Headache, unspecified (principal); R42 Dizziness and giddiness | CPT/HCPCS: 70450; 71045 ==